=== PATIENT | male | born 1965 | race Caucasian/White ===

== ENCOUNTER 2020-11-08 11:23 | Emergency (ER) | payer BC ==
[~2020-11-08] VITALS: Ht 190.5 cm; Wt 6.8 kg
[~2020-11-08 11:23] MED LIST: NO DAILY MEDS; PREDNICOT20 MG PO; VALIUM10 MG PO; VICODIN 5/500 505 MG PO
[2020-11-08] MEDS ORDERED: CEPHALEXIN500 M1 PO (12:15)
[2020-11-08] MEDS ORDERED: PREDNISONE10 MG PO (12:15)
== END 2020-11-08 12:33 | disposition home or self-care (01) ==
LOC: ED 11:23
DX: L25.9 Unspecified contact dermatitis, unspecified cause (principal)

== ENCOUNTER → 2020-12-22 | Outpatient (CLI) | payer BC ==
[~2020-12-22] MED LIST changes: +CEPHALEXIN500 M1 PO; +PREDNISONE10 MG PO
== END | disposition home or self-care (01) ==
LOC: MRI 12-20 09:00
PROVIDERS: ATTEND Family Medicine
DX: S83.242A Other tear of medial meniscus, current injury, left knee, initial encounter (principal); S83.512A Sprain of anterior cruciate ligament of left knee, initial encounter; M25.762 Osteophyte, left knee; M17.12 Unilateral primary osteoarthritis, left knee; M25.862 Other specified joint disorders, left knee; M25.462 Effusion, left knee; M71.22 Synovial cyst of popliteal space [Baker], left knee; X58.XXXA Exposure to other specified factors, initial encounter; Y93.89 Activity, other specified; Y92.89 Other specified places as the place of occurrence of the external cause; Y99.8 Other external cause status